=== PATIENT | female | born 1945 | race Caucasian/White ===

== ENCOUNTER 2017-05-08 15:25 | Emergency (ER) | payer MEDICARE, BC ==
[2017-05-08] MEDS ORDERED: Acetaminophen 325 MG Tab PO ONE (16:44)
[2017-05-08] MEDS ORDERED: Ibuprofen 600 MG Tab PO SCH (16:45)
--- NOTE | 2017-05-09 12:35 | CR ---
INDICATION: Fall. LEFT FOREARM: Three views of the left forearm were obtained and revealed minimal degenerative changes at the elbow joint compartment, with mild degenerative changes at the ulnar joint compartment - medial portion of the elbow joint. There is suggestion of an elbow joint effusion, making it difficult to entirely exclude an injury, although it could be on the basis of osteoarthritis. A follow-up study may be warranted, therefore, especially if an occult fracture site is suspected clinically. The study was otherwise unremarkable with no overt fracture or dislocation identified. There are noted some minimal degenerative changes at the wrist at the navicular multangular joints and the first metacarpal-carpal joint. These are relatively mild. IMPRESSION: 1. No acute fracture or dislocation visualized. However, there is a suggestion of a small elbow joint effusion, which may signal the possibility of an injury. Follow-up x-rays in 10-14 days, CT or MRI may be helpful for further evaluation, depending upon clinical course. 2. 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 MTDD
--- NOTE | 2017-05-09 12:36 | CR ---
INDICATION: Fall onto elbow. LEFT HUMERUS: Frontal and lateral views of the left humerus revealed no definite fracture or dislocation. There are some mild degenerative changes at the elbow joint. MTDD
--- NOTE | 2017-05-09 12:36 | CR ---
INDICATION: Face-plant. Fell. NASAL BONES: Four images of the nasal bones revealed the paranasal sinuses to be well aerated. A definite fracture or other definite bony abnormality was not identified. MTDD
--- NOTE | 2017-05-12 09:53 | ER ---
DATE SEEN: 05/08/2017 HISTORY OF PRESENT ILLNESS: Loulou is a 71-year-old woman who was walking on the usual 5 days a week, walk at the school for 1-2 miles with her , and she stepped on the rubber mat in the auditorium and tripped and fell at about 1000 hours. She did a face-plant, has mild rhinorrhea with trace of blood in the nose and she has mild headache. No chest pain, shortness of breath, or cough. She has left arm pain at the elbow. She has decreased range of motion. No paresthesia of the left upper extremity. PAST MEDICAL HISTORY: No diabetes. No heart disease. She does have mild elevation of pressure and she has glaucoma, hypertension. MEDICATIONS: 1. Timolol. 2. Lisinopril. 3. Aspirin. ALLERGIES: No allergies. REVIEW OF SYSTEMS: CARDIORESPIRATORY, GI, , MUSCULOSKELETAL: Negative except for left elbow and nose. Foot trauma. NEUROLOGIC: Negative. PSYCHIATRIC: Negative. PHYSICAL EXAMINATION: VITAL SIGNS: Blood pressure is elevated at 212/88, repeat blood pressure 152/69. Respirations 16, oxygen saturation 100%, pulse 84, temperature is 36.3 degrees centigrade. 95.254 kg with a BMI of 33.9 kg/m2. GENERAL: Alert patient. She has mild discomfort with nose and in her left elbow. She is protecting her left elbow because of discomfort. HEENT: No blood in the nares. No nasal septal deviation. No septal hematoma. Nares are patent. No swelling intranasally. No blood in posterior pharynx. Mild tenderness to the bridge of the nose. No step-off. PERRLA, intact. Eyegrounds normal. There is [id number] narrowing of the retina. I was unable to see the crossover vein in the retina which is a little unusual. I was looking for AV nicking for her hypertension, because of her elevated pressure, but I did not see them. Looked several times and still was not able to see any crossover. Optic disk is normal appearance. TMs negative. Neck, nontender anterior and posterior. No pain in her occiput. Trace headache. No maxillary or facial tenderness or step-off the orbits. No ecchymosis of the face. LUNGS: Clear without rales, rhonchi, or wheezes. CHEST: Nontender to palpation of ribs. HEART: S1 and S2. No irregular rate and rhythm. ABDOMEN: Soft. No guarding. No abdominal discomfort. No hepatosplenomegaly. Bowel sounds normal. EXTREMITIES: Without abnormality except for left upper extremity, she is favoring the elbow. The humerus is without abnormality, but there is a suggestion of a very faint sail sign, anterior left elbow. No fracture noted. No abnormality of the wrist or the glenohumeral joint. ASSESSMENT: 1. Accidental fall. 2. Nasal trauma without fracture. No septal hematoma. 3. Fracture of the left elbow there is anterior sail sign - anterior hematoma. 4. Elevated blood pressure initially, but it has come down. She is advised to take 6 different pressures and follow up with the doctor in a week. 5. She will need a repeat x-ray in a week. Use a sling. 6. Avoid hard nasal sneezing or nasal blowing. 7. Ice to elbow. 8. The patient does not want narcotics. Planned 1000 mg of Tylenol and 600 mg of ibuprofen q.6 hours. Her pressure has come down. So most likely, hypertension was secondary to acute accident, pain related elevation of blood pressure, but she needs to have this followed up. She is otherwise a healthy woman who walks 1 to 2 miles a day, 5 to 6 days a week with underlying low level hypertension, treated with lisinopril. ADDITIONAL COMMENT: No history of diabetes. No history of CVA. No myocardial infarction or other serious illnesses, hospitalizations, or surgery. Does not drink alcohol and does not smoke. /[id number] OMAR/HELENA CARMONA
== END 2017-05-08 17:40 | disposition home or self-care (01) ==
LOC: FB.ED 15:25
DX: S42.402A Unspecified fracture of lower end of left humerus, initial encounter for closed fracture (principal); I10 Essential (primary) hypertension; W01.0XXA Fall on same level from slipping, tripping and stumbling without subsequent striking against object, initial encounter
CPT/HCPCS: 70160; 73060; 73090; 81001; 99283; A9270